=== PATIENT | female | born 1965 | race Two or more races ===

== ENCOUNTER 2023-12-17 15:19 | Emergency (ER) | payer OTHER ==
[~2023-12-17] VITALS: Ht 162.6 cm; Wt 89.6 kg
[2023-12-17 15:20] VITALS: BP 182/110; PULSE 96; RESP 18; TEMP 98.2; O2SAT 96
[2023-12-17] MEDS: cloNIDine HCL 0.1 MG TAB PO ONE (18:39)
[2023-12-17] MEDS ORDERED: ERY05OO OP (19:00)
[2023-12-17] MEDS ORDERED: VALA1TAB34 PO (19:00)
[2023-12-17] MEDS: TETRACAINE HCL 0.5% OPTH(EYE) SOLN 4ML LEFTEYE ONE (19:07)
[2023-12-17] MEDS: FLUORESCEIN SOD OPTH TEST STRIP LEFTEYE ONE (19:07)
[2023-12-17] MEDS ORDERED: ACET500T58 PO (19:10)
[2023-12-17] MEDS ORDERED: NAP500T PO (19:15)
== END 2023-12-17 19:11 | disposition home or self-care (01) ==
LOC: ER 15:19
DX: B02.9 Zoster without complications (principal); I10 Essential (primary) hypertension; J45.909 Unspecified asthma, uncomplicated; G43.909 Migraine, unspecified, not intractable, without status migrainosus; Z90.49 Acquired absence of other specified parts of digestive tract; Z79.2 Long term (current) use of antibiotics; Z79.899 Other long term (current) drug therapy; Z88.2 Allergy status to sulfonamides